=== PATIENT | female | born 1935 | race Caucasian/White ===

== ENCOUNTER 2021-12-18 23:24 | Inpatient (IN) | payer MEDICARE, MEDICAID ==
[~2021-12-18] VITALS: Ht 152.4 cm; Wt 66.2 kg
[~2021-12-18 23:24] MED LIST: ATENOLOL50 MG PO; NORVASC5 MG PO; PROTONIX20 MG PO; REMERON15 MG PO; RISPERDAL2 MG PO; WELLBUTRIN SR150 MG PO
[2021-12-18 23:29] VITALS: BP 170/64
[2021-12-19] VITALS (8 sets, daily range): BP systolic 112–188; BP diastolic 51–91
[2021-12-19 00:36] LABS: BASO % 0.1 % (0.0-1.0); EOS # 0.1 10*3/uL (0.0-0.4); EOS % 1.5 % (1.0-4.0); HEMATOCRIT 27.2 % (37.0-47.0); LYMPH # 1.3 10*3/uL (1.3-4.4); LYMPH % 14.8 % (27.0-41.0); MEAN CELL VOLUME 78.2 fl (81.0-99.0); MEAN CORPUSCULAR HGB CONC 34.6 g/dl (33.0-37.0); MEAN PLATELET VOLUME 7.8 fl (9.6-12.3); MONO # 0.9 10*3/uL (0.1-1.0); MONO % 9.8 % (3.0-9.0); NEUT # 6.5 10*3/uL (2.3-7.9); NEUT % 73.5 % (47.0-73.0); PLATELET COUNT AUTOMATED 249 10*3/uL (130-400); RED BLOOD COUNT 3.48 10*6/uL (4.10-5.10); RED CELL DISTRI WIDTH 15.4 % (0-14.5); WHITE BLOOD COUNT 8.9 10*3/uL (4.8-10.8)
[2021-12-19 00:55] LABS: ALBUMIN 2.5 gm/dl (3.1-4.5); ALKALINE PHOSPHATASE 96 U/L (45-117); BUN 12 mg/dl (7-24); CHLORIDE 87 mmol/L (98-107); CREATININE 1.04 mg/dL (0.55-1.02); POTASSIUM 4.3 mmol/L (3.5-5.1); SGOT/AST 26 IU/L (3-35); SGPT/ALT 24 U/L (12-78); TOTAL PROTEIN 6.7 gm/dL (6.4-8.2)
[2021-12-19 01:00] LABS: SODIUM 119 mmol/L (136-145)
[2021-12-19 07:17] LABS: BASO % 0.2 % (0.0-1.0); EOS # 0.1 10*3/uL (0.0-0.4); EOS % 1.4 % (1.0-4.0); LYMPH # 1.3 10*3/uL (1.3-4.4); MEAN CELL VOLUME 78.7 fl (81.0-99.0); MEAN CORPUSCULAR HGB 26.5 pg (27.0-31.0); MEAN CORPUSCULAR HGB CONC 33.7 g/dl (33.0-37.0); MONO # 0.8 10*3/uL (0.1-1.0); MONO % 11.8 % (3.0-9.0); NEUT # 4.3 10*3/uL (2.3-7.9); NEUT % 66.1 % (47.0-73.0); PLATELET COUNT AUTOMATED 248 10*3/uL (130-400); RED BLOOD COUNT 3.43 10*6/uL (4.10-5.10); RED CELL DISTRI WIDTH 15.3 % (0-14.5); WHITE BLOOD COUNT 6.6 10*3/uL (4.8-10.8)
[2021-12-19 07:27] LABS: ACT PARTIAL THROMBO TIME 35.6 SECONDS (20.0-32.1); INTERNATIONAL NORM RATIO 1.1 (2.0-3.5)
[2021-12-19 07:38] LABS: ALBUMIN 2.4 gm/dl (3.1-4.5); BUN 11 mg/dl (7-24); CHLORIDE 87 mmol/L (98-107); CREATININE 0.96 mg/dL (0.55-1.02); POTASSIUM 4.4 mmol/L (3.5-5.1); SGPT/ALT 24 U/L (12-78); SODIUM 120 mmol/L (136-145); TOTAL PROTEIN 6.6 gm/dL (6.4-8.2); TRIGLYCERIDES 71 mg/dl (<150)
[2021-12-19 07:43] LABS: ALKALINE PHOSPHATASE 96 U/L (45-117); CHOLESTEROL 86 mg/dL (<200); LDL CHOLESTEROL 25 mg/dL (9-159); SGOT/AST 26 IU/L (3-35)
[2021-12-19 17:03] LABS: CREATININE 1.07 mg/dL (0.55-1.02); POTASSIUM 4.2 mmol/L (3.5-5.1)
[2021-12-19] MEDS ORDERED: LIPITOR20 MG PO (22:04)
[2021-12-20] VITALS: BP 153/71
[2021-12-20 01:32] LABS: BILIRUBIN Negative (Negative); BLOOD Negative (Negative); CLARITY Clear (Clear); COLOR Yellow (Yellow); GLUCOSE Negative (Negative); KETONE Negative (Negative); LEUKO ESTERASE Negative (Negative); NITRITE Negative (Negative); UROBILINOGEN 0.2 E.U./dl (0.0-1.0)
[2021-12-20 01:50] LABS: URINE CREATININE RANDOM 43.9 mg/dL
[2021-12-20 07:27] LABS: BASO % 0.1 % (0.0-1.0); EOS % 0.1 % (1.0-4.0); HEMATOCRIT 29.1 % (37.0-47.0); LYMPH # 0.5 10*3/uL (1.3-4.4); LYMPH % 3.5 % (27.0-41.0); MEAN CELL VOLUME 79.5 fl (81.0-99.0); MEAN CORPUSCULAR HGB 26.5 pg (27.0-31.0); MEAN CORPUSCULAR HGB CONC 33.3 g/dl (33.0-37.0); MEAN PLATELET VOLUME 7.9 fl (9.6-12.3); MONO # 0.9 10*3/uL (0.1-1.0); MONO % 6.1 % (3.0-9.0); NEUT # 13.2 10*3/uL (2.3-7.9); NEUT % 89.7 % (47.0-73.0); PLATELET COUNT AUTOMATED 258 10*3/uL (130-400); RED BLOOD COUNT 3.66 10*6/uL (4.10-5.10); RED CELL DISTRI WIDTH 15.3 % (0-14.5); WHITE BLOOD COUNT 14.7 10*3/uL (4.8-10.8)
[2021-12-20 07:46] LABS: BUN 8 mg/dl (7-24); CHLORIDE 87 mmol/L (98-107); CREATININE 0.93 mg/dL (0.55-1.02); POTASSIUM 4.2 mmol/L (3.5-5.1); SODIUM 120 mmol/L (136-145)
[2021-12-20 08:00] VITALS: BP 146/69
[2021-12-20 12:00] VITALS: BP 122/76
[2021-12-20 15:04] VITALS: BP 131/96
[2021-12-20 21:16] VITALS: BP 130/45
[2021-12-21] VITALS: BP 155/62
[2021-12-21 07:01] LABS: HEMATOCRIT 28.2 % (37.0-47.0); MEAN CELL VOLUME 78.1 fl (81.0-99.0); MEAN CORPUSCULAR HGB 26.6 pg (27.0-31.0); MEAN PLATELET VOLUME 8.3 fl (9.6-12.3); PLATELET COUNT AUTOMATED 277 10*3/uL (130-400); RED BLOOD COUNT 3.61 10*6/uL (4.10-5.10); RED CELL DISTRI WIDTH 15.4 % (0-14.5); WHITE BLOOD COUNT 16.8 10*3/uL (4.8-10.8)
[2021-12-21 07:13] LABS: CREATININE 1.06 mg/dL (0.55-1.02); POTASSIUM 3.6 mmol/L (3.5-5.1)
[2021-12-21 07:19] LABS: THYROID STIM HORMONE (HS) 1.25 uIU/ml (0.358-4.75)
[2021-12-21 08:00] VITALS: BP 129/100
[2021-12-21 08:12] LABS: ACANTHOCYTES FEW; PLATELET SUFFICIENCY NORMAL (NORMAL); POLYCHROMASIA SLIGHT; TOTAL CELLS COUNTED 100 #CELLS
[2021-12-21 12:00] VITALS: BP 139/89
[2021-12-21 16:00] VITALS: BP 128/61
[2021-12-21 20:00] VITALS: BP 123/85
[2021-12-22] VITALS: BP 104/60
[2021-12-22 06:23] LABS: BASO % 0.1 % (0.0-1.0); EOS # 0.1 10*3/uL (0.0-0.4); EOS % 0.8 % (1.0-4.0); LYMPH # 0.6 10*3/uL (1.3-4.4); LYMPH % 3.8 % (27.0-41.0); MEAN CELL VOLUME 78.7 fl (81.0-99.0); MEAN CORPUSCULAR HGB 26.5 pg (27.0-31.0); MEAN CORPUSCULAR HGB CONC 33.7 g/dl (33.0-37.0); MEAN PLATELET VOLUME 8.1 fl (9.6-12.3); MONO # 0.9 10*3/uL (0.1-1.0); MONO % 5.9 % (3.0-9.0); NEUT # 12.8 10*3/uL (2.3-7.9); PLATELET COUNT AUTOMATED 255 10*3/uL (130-400); RED BLOOD COUNT 3.43 10*6/uL (4.10-5.10); RED CELL DISTRI WIDTH 15.5 % (0-14.5); WHITE BLOOD COUNT 14.4 10*3/uL (4.8-10.8)
[2021-12-22 06:31] LABS: BUN 12 mg/dl (7-24); CHLORIDE 92 mmol/L (98-107); SODIUM 123 mmol/L (136-145)
[2021-12-22 06:32] LABS: POTASSIUM 3.9 mmol/L (3.5-5.1)
[2021-12-22 08:00] VITALS: BP 125/50
[2021-12-22 13:00] VITALS: BP 117/58
[2021-12-22 16:00] VITALS: BP 139/90
[2021-12-22 20:00] VITALS: BP 143/88
[2021-12-23 07:01] LABS: BASO % 0.1 % (0.0-1.0); EOS # 0.1 10*3/uL (0.0-0.4); HEMATOCRIT 26.2 % (37.0-47.0); LYMPH # 0.8 10*3/uL (1.3-4.4); LYMPH % 6.2 % (27.0-41.0); MEAN CELL VOLUME 77.1 fl (81.0-99.0); MEAN CORPUSCULAR HGB 25.9 pg (27.0-31.0); MEAN CORPUSCULAR HGB CONC 33.6 g/dl (33.0-37.0); MEAN PLATELET VOLUME 8.4 fl (9.6-12.3); MONO # 1.1 10*3/uL (0.1-1.0); MONO % 8.4 % (3.0-9.0); NEUT # 11.4 10*3/uL (2.3-7.9); NEUT % 83.7 % (47.0-73.0); PLATELET COUNT AUTOMATED 311 10*3/uL (130-400); RED CELL DISTRI WIDTH 15.4 % (0-14.5); WHITE BLOOD COUNT 13.6 10*3/uL (4.8-10.8)
[2021-12-23 07:10] LABS: BUN 9 mg/dl (7-24); CHLORIDE 93 mmol/L (98-107); CREATININE 0.73 mg/dL (0.55-1.02); POTASSIUM 3.5 mmol/L (3.5-5.1); SODIUM 123 mmol/L (136-145)
[2021-12-23 08:00] VITALS: BP 119/50
[2021-12-23 12:00] VITALS: BP 124/64
[2021-12-23 16:00] VITALS: BP 120/55
[2021-12-23 20:00] VITALS: BP 138/59
[2021-12-24] VITALS: BP 130/61
[2021-12-24 06:12] LABS: BASO % 0.2 % (0.0-1.0); EOS # 0.1 10*3/uL (0.0-0.4); EOS % 0.8 % (1.0-4.0); HEMATOCRIT 27.5 % (37.0-47.0); LYMPH # 0.7 10*3/uL (1.3-4.4); LYMPH % 5.5 % (27.0-41.0); MEAN CORPUSCULAR HGB 26.4 pg (27.0-31.0); MEAN CORPUSCULAR HGB CONC 33.5 g/dl (33.0-37.0); MEAN PLATELET VOLUME 8.1 fl (9.6-12.3); MONO # 1.4 10*3/uL (0.1-1.0); MONO % 10.7 % (3.0-9.0); NEUT # 10.5 10*3/uL (2.3-7.9); PLATELET COUNT AUTOMATED 303 10*3/uL (130-400); RED BLOOD COUNT 3.48 10*6/uL (4.10-5.10); RED CELL DISTRI WIDTH 15.6 % (0-14.5); WHITE BLOOD COUNT 12.8 10*3/uL (4.8-10.8)
[2021-12-24 06:23] LABS: BUN 7 mg/dl (7-24); CHLORIDE 94 mmol/L (98-107); CREATININE 0.71 mg/dL (0.55-1.02); POTASSIUM 3.9 mmol/L (3.5-5.1); SODIUM 126 mmol/L (136-145)
[2021-12-24 08:52] VITALS: BP 120/61
[2021-12-24 11:37] VITALS: BP 120/61
[2021-12-24 16:00] VITALS: BP 138/50
[2021-12-24 20:00] VITALS: BP 143/50
[2021-12-25 06:10] LABS: BASO % 0.2 % (0.0-1.0); EOS # 0.1 10*3/uL (0.0-0.4); EOS % 1.1 % (1.0-4.0); HEMATOCRIT 26.2 % (37.0-47.0); LYMPH % 8.5 % (27.0-41.0); MEAN CELL VOLUME 77.7 fl (81.0-99.0); MEAN CORPUSCULAR HGB 26.7 pg (27.0-31.0); MEAN CORPUSCULAR HGB CONC 34.4 g/dl (33.0-37.0); MONO # 1.5 10*3/uL (0.1-1.0); MONO % 12.4 % (3.0-9.0); NEUT # 9.3 10*3/uL (2.3-7.9); PLATELET COUNT AUTOMATED 306 10*3/uL (130-400); RED BLOOD COUNT 3.37 10*6/uL (4.10-5.10); RED CELL DISTRI WIDTH 15.8 % (0-14.5)
[2021-12-25 06:26] LABS: BUN 6 mg/dl (7-24); CHLORIDE 93 mmol/L (98-107); CREATININE 0.65 mg/dL (0.55-1.02); POTASSIUM 3.5 mmol/L (3.5-5.1); SODIUM 125 mmol/L (136-145)
[2021-12-25 08:00] VITALS: BP 152/88
[2021-12-25 12:00] VITALS: BP 122/50
[2021-12-25 16:00] VITALS: BP 131/110
[2021-12-25 20:00] VITALS: BP 133/64
[2021-12-26] VITALS (9 sets, daily range): BP systolic 122–167; BP diastolic 42–81
[2021-12-26] MEDS ORDERED: PANTOPRAZOLE SO40 MG PO (03:51)
[2021-12-26 07:29] LABS: BUN 7 mg/dl (7-24); CHLORIDE 97 mmol/L (98-107); POTASSIUM 3.3 mmol/L (3.5-5.1); SODIUM 130 mmol/L (136-145)
[2021-12-26 07:30] LABS: CREATININE 0.66 mg/dL (0.55-1.02)
[2021-12-27] VITALS: BP 126/49
[2021-12-27 07:04] LABS: BASO % 0.3 % (0.0-1.0); EOS # 0.2 10*3/uL (0.0-0.4); EOS % 2.1 % (1.0-4.0); HEMATOCRIT 29.4 % (37.0-47.0); LYMPH # 1.6 10*3/uL (1.3-4.4); LYMPH % 17.2 % (27.0-41.0); MEAN CELL VOLUME 79.5 fl (81.0-99.0); MEAN CORPUSCULAR HGB 26.2 pg (27.0-31.0); MEAN PLATELET VOLUME 8.2 fl (9.6-12.3); MONO # 0.9 10*3/uL (0.1-1.0); MONO % 9.7 % (3.0-9.0); NEUT # 6.3 10*3/uL (2.3-7.9); NEUT % 69.3 % (47.0-73.0); PLATELET COUNT AUTOMATED 389 10*3/uL (130-400); RED CELL DISTRI WIDTH 16.3 % (0-14.5); WHITE BLOOD COUNT 9.1 10*3/uL (4.8-10.8)
[2021-12-27 07:22] LABS: BUN 5 mg/dl (7-24); CHLORIDE 97 mmol/L (98-107); CREATININE 0.64 mg/dL (0.55-1.02); SODIUM 129 mmol/L (136-145)
[2021-12-27 08:00] VITALS: BP 140/50
[2021-12-27] MEDS ORDERED: SODIUM CHLORIDE1 GM PO (11:36)
[2021-12-27] MEDS ORDERED: MUCUS RELIEF600 MG PO (11:36)
[2021-12-27] MEDS ORDERED: Carafate1 GM PO (11:36)
[2021-12-27] MEDS ORDERED: LEVOFLOXACIN750 M2 PO (11:36)
[2021-12-27 12:00] VITALS: BP 140/62
== END 2021-12-27 15:19 | DRG 871 ==
LOC: ED 23:24 → EDHOLD 12-19 06:17 → 4E 12-19 06:17 → EDHOLD 12-19 16:51 → 4E 12-19 16:51
PROVIDERS: Emergency Medicine; Hospitalist; Internal Medicine; Internal Medicine Nephrology; ADMIT Internal Medicine; ATTEND Internal Medicine
PROC: BD1BYZZ Fluoroscopy of Mouth/Oropharynx using Other Contrast (ICD-10-PCS; 2021-12-25)
PROC: 0D718ZZ Dilation of Upper Esophagus, Via Natural or Artificial Opening Endoscopic (ICD-10-PCS; principal; 2021-12-26)
DX: A41.9 Sepsis, unspecified organism (principal); N17.0 Acute kidney failure with tubular necrosis; J18.9 Pneumonia, unspecified organism; E43 Unspecified severe protein-calorie malnutrition; J96.00 Acute respiratory failure, unspecified whether with hypoxia or hypercapnia; E87.1 Hypo-osmolality and hyponatremia; Z51.5 Encounter for palliative care; R13.10 Dysphagia, unspecified; E87.6 Hypokalemia; Z66 Do not resuscitate; R73.9 Hyperglycemia, unspecified; J06.9 Acute upper respiratory infection, unspecified; D50.9 Iron deficiency anemia, unspecified; K21.9 Gastro-esophageal reflux disease without esophagitis; E87.8 Other disorders of electrolyte and fluid balance, not elsewhere classified; E78.2 Mixed hyperlipidemia; I10 Essential (primary) hypertension; Z88.2 Allergy status to sulfonamides; Z90.710 Acquired absence of both cervix and uterus; Z88.0 Allergy status to penicillin; Z90.49 Acquired absence of other specified parts of digestive tract; Z88.1 Allergy status to other antibiotic agents; Z88.8 Allergy status to other drugs, medicaments and biological substances; Z20.822 Contact with and (suspected) exposure to COVID-19

== ENCOUNTER 2022-01-18 08:20 | Emergency (ER) | payer MEDICARE, MEDICAID ==
[~2022-01-18] VITALS: Ht 165.1 cm; Wt 68.9 kg
[~2022-01-18 08:20] MED LIST changes: +Carafate1 GM PO; +LEVOFLOXACIN750 M2 PO; +LIPITOR20 MG PO; +MUCUS RELIEF600 MG PO; +PANTOPRAZOLE SO40 MG PO; +SODIUM CHLORIDE1 GM PO
[2022-01-18 08:54] LABS: BASO % 0.5 % (0.0-1.0); EOS # 0.4 10*3/uL (0.0-0.4); EOS % 4.9 % (1.0-4.0); HEMATOCRIT 35.5 % (37.0-47.0); LYMPH % 26.8 % (27.0-41.0); MEAN CELL VOLUME 83.3 fl (81.0-99.0); MEAN CORPUSCULAR HGB 26.5 pg (27.0-31.0); MEAN CORPUSCULAR HGB CONC 31.8 g/dl (33.0-37.0); MEAN PLATELET VOLUME 8.3 fl (9.6-12.3); MONO # 0.5 10*3/uL (0.1-1.0); MONO % 6.8 % (3.0-9.0); NEUT # 4.6 10*3/uL (2.3-7.9); NEUT % 60.6 % (47.0-73.0); PLATELET COUNT AUTOMATED 279 10*3/uL (130-400); RED BLOOD COUNT 4.26 10*6/uL (4.10-5.10); WHITE BLOOD COUNT 7.5 10*3/uL (4.8-10.8)
[2022-01-18 08:59] VITALS: BP 175/80
[2022-01-18 09:13] LABS: ALBUMIN 2.8 gm/dl (3.1-4.5); ALKALINE PHOSPHATASE 86 U/L (45-117); BUN 7 mg/dl (7-24); CHLORIDE 109 mmol/L (98-107); CREATININE 0.77 mg/dL (0.55-1.02); POTASSIUM 4.3 mmol/L (3.5-5.1); SGOT/AST 19 IU/L (3-35); SGPT/ALT 17 U/L (12-78); SODIUM 140 mmol/L (136-145); TOTAL PROTEIN 7.3 gm/dL (6.4-8.2)
[2022-01-18 09:48] LABS: BILIRUBIN Negative (Negative); BLOOD Trace-Lysed (Negative); CLARITY Clear (Clear); COLOR Yellow (Yellow); GLUCOSE Negative (Negative); KETONE Negative (Negative); LEUKO ESTERASE Negative (Negative); NITRITE Negative (Negative); PH 7.5 (4.5-8.0); UROBILINOGEN 0.2 E.U./dl (0.0-1.0)
[2022-01-18 09:54] LABS: BACTERIA 1+
[2022-01-18 09:55] LABS: EPITHELIAL CELLS 0-2
== END 2022-01-18 10:16 | disposition home or self-care (01) ==
LOC: ED 08:20
PROVIDERS: Emergency Medicine
DX: R41.0 Disorientation, unspecified (principal); Z88.0 Allergy status to penicillin; Z88.1 Allergy status to other antibiotic agents; Z88.2 Allergy status to sulfonamides; Z79.899 Other long term (current) drug therapy; Z90.710 Acquired absence of both cervix and uterus; Z90.49 Acquired absence of other specified parts of digestive tract

== ENCOUNTER 2023-03-21 16:04 | Emergency (ER) | payer MEDICARE, MEDICAID ==
[2023-03-21 16:10] VITALS: BP 153/70
[2023-03-21 16:53] LABS: BASO % 0.3 % (0.0-1.0); EOS # 0.2 10*3/uL (0.0-0.4); EOS % 2.3 % (1.0-4.0); LYMPH # 2.5 10*3/uL (1.3-4.4); LYMPH % 31.9 % (27.0-41.0); MEAN CELL VOLUME 82.2 fl (81.0-99.0); MEAN CORPUSCULAR HGB 27.1 pg (27.0-31.0); MEAN CORPUSCULAR HGB CONC 32.9 g/dl (33.0-37.0); MEAN PLATELET VOLUME 8.4 fl (9.6-12.3); MONO # 0.6 10*3/uL (0.1-1.0); MONO % 7.4 % (3.0-9.0); NEUT # 4.6 10*3/uL (2.3-7.9); NEUT % 57.7 % (47.0-73.0); PLATELET COUNT AUTOMATED 339 10*3/uL (130-400); RED BLOOD COUNT 3.77 10*6/uL (4.10-5.10); RED CELL DISTRI WIDTH 15.7 % (0-14.5)
[2023-03-21 17:08] LABS: ACT PARTIAL THROMBO TIME 33.3 SECONDS (20.0-32.1)
[2023-03-21 17:09] LABS: ALKALINE PHOSPHATASE 90 U/L (46-116); BUN 12 mg/dl (9-23); CHLORIDE 99 mmol/L (98-107); LIPASE 44 U/L (12-53); POTASSIUM 4.8 mmol/L (3.4-5.1); SGPT/ALT 14 U/L (10-49); TOTAL PROTEIN 6.8 gm/dL (6.0-8.0)
== END 2023-03-21 18:49 ==
LOC: ED 16:04
PROVIDERS: Emergency Medicine
DX: J20.9 Acute bronchitis, unspecified (principal)

== ENCOUNTER 2024-06-24 07:06 | Inpatient (IN) | payer MEDICARE, MEDICAID ==
[~2024-06-24] VITALS: Ht 152.4 cm; Wt 64.2 kg
[~2024-06-24 07:06] MED LIST changes: +ATENOLOL25 MG PO; -ATENOLOL50 MG PO
[2024-06-24 07:08] VITALS: BP 202/93
[2024-06-24 07:51] LABS: BASO % 0.3 % (0.0-1.0); EOS # 0.2 10*3/uL (0.0-0.4); EOS % 1.8 % (1.0-4.0); HEMATOCRIT 37.7 % (37.0-47.0); LYMPH # 2.4 10*3/uL (1.3-4.4); LYMPH % 25.7 % (27.0-41.0); MEAN CELL VOLUME 95.2 fl (81.0-99.0); MEAN CORPUSCULAR HGB 30.8 pg (27.0-31.0); MEAN CORPUSCULAR HGB CONC 32.4 g/dl (33.0-37.0); MEAN PLATELET VOLUME 8.9 fl (9.6-12.3); MONO # 0.8 10*3/uL (0.1-1.0); MONO % 8.8 % (3.0-9.0); NEUT # 5.8 10*3/uL (2.3-7.9); NEUT % 63.2 % (47.0-73.0); PLATELET COUNT AUTOMATED 310 10*3/uL (130-400); RED BLOOD COUNT 3.96 10*6/uL (4.10-5.10); RED CELL DISTRI WIDTH 13.8 % (0-14.5); WHITE BLOOD COUNT 9.1 10*3/uL (4.8-10.8)
[2024-06-24 08:13] LABS: ALKALINE PHOSPHATASE 90 U/L (46-116); BUN 7 mg/dl (9-23); CHLORIDE 101 mmol/L (98-107); POTASSIUM 3.8 mmol/L (3.4-5.1); SGPT/ALT 11 U/L (5-49)
[2024-06-24] MEDS ORDERED: Vancomycin Hydrochloride 250 ML IV ONE (08:30)
[2024-06-24] MEDS ORDERED: Cefepime Hydrochloride 1 GM in SODIUM CHLORIDE 0.9% 50 ML IV ONE (08:45)
[2024-06-24] MEDS ORDERED: BISACODYL 5 MG TAB PO PRN (12:40)
[2024-06-24] MEDS ORDERED: Ondansetron Hydrochloride 4 MG/2 ML VIAL IV PRN (12:40)
[2024-06-24] MEDS ORDERED: ACETAMINOPHEN 325 MG TAB PO PRN (12:40)
[2024-06-24] MEDS ORDERED: ATENOLOL 50 MG TAB PO ONE (12:45)
[2024-06-24] MEDS ORDERED: amLODIPine besylate 5 MG TAB PO ONE (12:45)
[2024-06-24] MEDS ORDERED: Vancomycin Hydrochloride 1,000 MG in SODIUM CHLORIDE 0.9% 250 ML IV SCH (12:50)
[2024-06-24] MEDS ORDERED: ATENOLOL50 M1 PO (18:21)
[2024-06-24] MEDS ORDERED: CALCIUM500 M1 PO (18:21)
[2024-06-24] MEDS ORDERED: CHLORHEXIDINE473 M1 PO (18:22)
[2024-06-24] MEDS ORDERED: LOPERAMIDE PO (18:23)
[2024-06-24] MEDS ORDERED: LOSARTAN POTAS100 M1 PO (18:24)
[2024-06-24] MEDS ORDERED: MAGOX 400400 MG PO (18:25)
[2024-06-24] MEDS ORDERED: MELATONIN5 M1 SL (18:26)
[2024-06-24] MEDS ORDERED: Zaroxolyn,Diul2.5 MG PO (18:28)
[2024-06-24] MEDS ORDERED: DOXYCYCLINE HY100 M3 PO (18:30)
[2024-06-24] MEDS ORDERED: CLARITIN10 MG PO (18:31)
[2024-06-24] MEDS ORDERED: FUROSEMIDE40 MG PO (18:31)
[2024-06-24] MEDS ORDERED: DOCUSATE SOD100 MG PO (18:31)
[2024-06-24] MEDS ORDERED: DULCOLAX10 M1 R (18:32)
[2024-06-24] MEDS ORDERED: GAVISCON LIQUI355 ML PO (18:33)
[2024-06-24] MEDS ORDERED: Ipratropium Brom3 ML INH (18:34)
[2024-06-24] MEDS ORDERED: IRON325 M1 PO (18:34)
[2024-06-24] MEDS ORDERED: MILK OF MA400 MG/5 M PO (18:35)
[2024-06-24] MEDS ORDERED: MIRALAX17 GM PO (18:36)
[2024-06-24] MEDS ORDERED: MYLANTA MAXIMUM10 ML PO (18:37)
[2024-06-24 20:00] VITALS: BP 187/77
[2024-06-24] MEDS ORDERED: ATENOLOL 50 MG TAB PO PRN (21:50)
[2024-06-24] MEDS ORDERED: Losartan Potassium 100 MG TABLET PO SCH (21:50)
[2024-06-24] MEDS ORDERED: ATORVASTATIN CALCIUM 20 MG TAB PO SCH (22:00)
[2024-06-25 00:27] VITALS: BP 178/89
[2024-06-25 01:36] LABS: BILIRUBIN Negative (Negative); BLOOD 2+ (Negative); CLARITY Turbid (Clear); COLOR Yellow (Yellow); GLUCOSE Negative (Negative); KETONE Negative (Negative); LEUKO ESTERASE 3+ (Negative); NITRITE Negative (Negative); UROBILINOGEN 0.2 E.U./dl (0.0-1.0)
[2024-06-25 01:43] LABS: BACTERIA TRACE; RBC 21-30 rbc/hpf (0-2); WBC TNTC wbc/hpf (0-5)
[2024-06-25 05:56] LABS: ALKALINE PHOSPHATASE 92 U/L (46-116); BUN 7 mg/dl (9-23); CHLORIDE 101 mmol/L (98-107); CHOLESTEROL 115 mg/dL (<200); LDL CHOLESTEROL 56 mg/dL (9-159); POTASSIUM 3.6 mmol/L (3.4-5.1); SGPT/ALT 12 U/L (5-49); TOTAL PROTEIN 6.9 gm/dL (6.0-8.0); TRIGLYCERIDES 121 mg/dl (<150)
[2024-06-25 06:10] LABS: BASO % 0.3 % (0.0-1.0); EOS # 0.1 10*3/uL (0.0-0.4); EOS % 1.1 % (1.0-4.0); HEMATOCRIT 38.5 % (37.0-47.0); LYMPH # 1.6 10*3/uL (1.3-4.4); LYMPH % 16.4 % (27.0-41.0); MEAN CELL VOLUME 94.6 fl (81.0-99.0); MEAN CORPUSCULAR HGB 30.5 pg (27.0-31.0); MEAN CORPUSCULAR HGB CONC 32.2 g/dl (33.0-37.0); MEAN PLATELET VOLUME 9.1 fl (9.6-12.3); MONO # 0.8 10*3/uL (0.1-1.0); MONO % 8.5 % (3.0-9.0); NEUT % 73.4 % (47.0-73.0); PLATELET COUNT AUTOMATED 323 10*3/uL (130-400); RED BLOOD COUNT 4.07 10*6/uL (4.10-5.10); RED CELL DISTRI WIDTH 13.9 % (0-14.5); WHITE BLOOD COUNT 9.6 10*3/uL (4.8-10.8)
[2024-06-25 06:47] VITALS: BP 184/89
[2024-06-25 07:25] LABS: VITAMIN D, 25-HYDROXY 42.2 ng/mL (30-100)
[2024-06-25] MEDS ORDERED: Ceftriaxone Sodium 1 GM in SYRINGE INFUSION 10 ML IV SCH (08:00)
[2024-06-25 09:47] VITALS: BP 200/80
[2024-06-25] MEDS ORDERED: METOLAZONE 2.5 MG TAB PO SCH (10:00)
[2024-06-25] MEDS ORDERED: VANCOMYCIN/WATER FOR INJ (PEG) 250 ML IV SCH (10:00)
[2024-06-25] MEDS ORDERED: FUROSEMIDE 40 MG TAB PO SCH (10:00)
[2024-06-25] MEDS ORDERED: ATENOLOL 25 MG TAB PO SCH (10:00)
[2024-06-25] MEDS ORDERED: Enoxaparin Sodium 40 MG/0.4 ML SYR SC SCH (10:00)
[2024-06-25] MEDS ORDERED: Losartan Potassium 100 MG TABLET PO SCH (11:54)
[2024-06-25 12:27] VITALS: BP 182/83
[2024-06-25 13:45] VITALS: BP 161/91
[2024-06-25] MEDS ORDERED: CHAIR CUSHION DEVICE ONE (14:12)
[2024-06-25] MEDS ORDERED: HEEL PROTECTOR DEVICE ONE (14:12)
[2024-06-25 20:00] VITALS: BP 152/88
[2024-06-25] MEDS ORDERED: NYSTATIN 15 GM BOT T SCH (22:00)
[2024-06-26] VITALS: BP 150/65
[2024-06-26 08:00] VITALS: BP 137/53
[2024-06-26 08:48] LABS: BASO % 0.4 % (0.0-1.0); EOS # 0.2 10*3/uL (0.0-0.4); HEMATOCRIT 39.9 % (37.0-47.0); LYMPH # 2.1 10*3/uL (1.3-4.4); LYMPH % 20.1 % (27.0-41.0); MEAN CELL VOLUME 91.7 fl (81.0-99.0); MEAN CORPUSCULAR HGB 30.8 pg (27.0-31.0); MEAN CORPUSCULAR HGB CONC 33.6 g/dl (33.0-37.0); MEAN PLATELET VOLUME 8.7 fl (9.6-12.3); MONO # 0.9 10*3/uL (0.1-1.0); MONO % 8.5 % (3.0-9.0); NEUT # 7.3 10*3/uL (2.3-7.9); NEUT % 68.6 % (47.0-73.0); PLATELET COUNT AUTOMATED 327 10*3/uL (130-400); RED BLOOD COUNT 4.35 10*6/uL (4.10-5.10); RED CELL DISTRI WIDTH 14.1 % (0-14.5); WHITE BLOOD COUNT 10.6 10*3/uL (4.8-10.8)
[2024-06-26 09:11] LABS: POTASSIUM 3.7 mmol/L (3.4-5.1)
[2024-06-26] MEDS ORDERED: Sertraline Hydrochloride 50 MG TAB PO SCH (10:55)
[2024-06-26 12:00] VITALS: BP 130/70
[2024-06-26 16:00] VITALS: BP 120/60
[2024-06-26 20:00] VITALS: BP 109/42
[2024-06-26] MEDS ORDERED: CALCIUM (TUMS) 500MG PO ONE (23:35)
[2024-06-27] VITALS: BP 116/47
[2024-06-27 08:00] VITALS: BP 120/60
[2024-06-27] MEDS ORDERED: IRON325 M1 PO ×2 (08:37→08:59)
[2024-06-27] MEDS ORDERED: SERTRALINE HYDR50 MG PO ×2 (08:37→08:59)
[2024-06-27] MEDS ORDERED: FOSFOMYCIN TROME3 GM PO ×2 (08:57→08:59)
[2024-06-27] MEDS ORDERED: NAMENDA-5 PO (09:16)
[2024-06-27] MEDS ORDERED: RISPERDAL1 M1 PO (09:16)
[2024-06-27] MEDS ORDERED: Fosfomycin Tromethamine 3 GM PDS PO SCH (10:00)
[2024-06-27] MEDS ORDERED: Rivastigmine Tartrate 4.6 MG/24 HR PATCH T SCH (10:00)
== END 2024-06-27 11:00 | DRG 603 ==
LOC: ED 07:06 → 4E 11:10 → EDHOLD 11:10 → 4E 06-25 12:51
PROVIDERS: Internal Medicine; Registered Nurse; ADMIT Internal Medicine; ATTEND Internal Medicine
DX: L03.116 Cellulitis of left lower limb (principal); E87.1 Hypo-osmolality and hyponatremia; E44.0 Moderate protein-calorie malnutrition; N30.00 Acute cystitis without hematuria; L03.115 Cellulitis of right lower limb; I10 Essential (primary) hypertension; R73.9 Hyperglycemia, unspecified; K21.9 Gastro-esophageal reflux disease without esophagitis; F03.90 Unspecified dementia, unspecified severity, without behavioral disturbance, psychotic disturbance, mood disturbance, and anxiety; Z66 Do not resuscitate; F41.9 Anxiety disorder, unspecified; B96.20 Unspecified Escherichia coli [E. coli] as the cause of diseases classified elsewhere; E78.5 Hyperlipidemia, unspecified; Z51.5 Encounter for palliative care; Z88.1 Allergy status to other antibiotic agents; Z88.0 Allergy status to penicillin; Z88.2 Allergy status to sulfonamides; Z88.8 Allergy status to other drugs, medicaments and biological substances; Z90.49 Acquired absence of other specified parts of digestive tract; Z90.710 Acquired absence of both cervix and uterus; Z98.41 Cataract extraction status, right eye; Z68.27 Body mass index [BMI] 27.0-27.9, adult

== ENCOUNTER 2024-07-30 16:58 | Inpatient (IN) | payer MEDICARE, MEDICAID ==
[~2024-07-30] VITALS: Ht 154.9 cm; Wt 63.6 kg
[~2024-07-30 16:58] MED LIST changes: +ATENOLOL50 M1 PO; +CALCIUM500 M1 PO; +CHLORHEXIDINE473 M1 PO; +CIPRO500 MG PO; +CLARITIN10 MG PO; +DOCUSATE SOD100 MG PO; +DOXYCYCLINE HY100 M3 PO; +DULCOLAX10 M1 R; +FOSFOMYCIN TROME3 GM PO; +FUROSEMIDE40 MG PO; +GAVISCON LIQUI355 ML PO; +IRON325 M1 PO; +Ipratropium Brom3 ML INH; +LOPERAMIDE PO; +LOSARTAN POTAS100 M1 PO; +MAGOX 400400 MG PO; +MELATONIN5 M1 SL; +MILK OF MA400 MG/5 M PO; +MIRALAX17 GM PO; +MYLANTA MAXIMUM10 ML PO; +NAMENDA-5 PO; +RISPERDAL1 M1 PO; +SERTRALINE HYDR50 MG PO; +Zaroxolyn,Diul2.5 MG PO
[2024-07-30] MEDS ORDERED: Fosfomycin Tromethamine 3 GM PDS PO ONE (18:35)
[2024-07-30 20:00] VITALS: BP 147/93
[2024-07-30] MEDS ORDERED: [UNRECOGNIZED DRUG - OTHER] R (21:56)
[2024-07-30] MEDS ORDERED: MINERAL OIL R (21:58)
[2024-07-30] MEDS ORDERED: NAMENDA-5 PO ×2 (22:07)
[2024-07-30] MEDS ORDERED: PROTONIX40 M2 PO (22:08)
[2024-07-30] MEDS ORDERED: K-TAB20 MEQ PO (22:09)
[2024-07-30] MEDS ORDERED: PREDNISONE2.5 MG PO (22:12)
[2024-07-30] MEDS ORDERED: REMERON15 M2 PO (22:13)
[2024-07-30] MEDS ORDERED: EXEL13.31 T (22:14)
[2024-07-30] MEDS ORDERED: ZOLOFT25 MG PO (22:17)
[2024-07-30] MEDS ORDERED: SODIUM CHLORI1000 M5 PO (22:20)
[2024-07-30] MEDS ORDERED: TYLENOL325 M1 PO (22:22)
[2024-07-30] MEDS ORDERED: XANAX0.5 MG PO (22:23)
[2024-07-30] MEDS ORDERED: IRON325 M1 PO (22:25)
[2024-07-30] MEDS ORDERED: IMODIUM A-1 MG/7.51 PO (22:28)
[2024-07-30] MEDS ORDERED: Magnesium Hydroxide 30 ML UDC PO PRN (22:40)
[2024-07-30] MEDS ORDERED: ACETAMINOPHEN 325 MG TAB PO PRN (22:40)
[2024-07-30] MEDS ORDERED: MG-AL HYDROXIDE/SIMETICONE 30 ML UDC PO PRN (22:40)
[2024-07-30] MEDS ORDERED: Menthol/Zinc Oxide 4 GM THIN T PRN (22:50)
[2024-07-31 07:31] LABS: BASO % 0.1 % (0.0-1.0); EOS # 0.3 10*3/uL (0.0-0.4); EOS % 2.7 % (1.0-4.0); HEMATOCRIT 33.2 % (37.0-47.0); LYMPH # 1.6 10*3/uL (1.3-4.4); LYMPH % 15.2 % (27.0-41.0); MEAN CELL VOLUME 94.9 fl (81.0-99.0); MEAN CORPUSCULAR HGB 31.4 pg (27.0-31.0); MEAN CORPUSCULAR HGB CONC 33.1 g/dl (33.0-37.0); MEAN PLATELET VOLUME 8.9 fl (9.6-12.3); MONO # 0.9 10*3/uL (0.1-1.0); MONO % 8.6 % (3.0-9.0); NEUT # 7.5 10*3/uL (2.3-7.9); NEUT % 73.1 % (47.0-73.0); PLATELET COUNT AUTOMATED 274 10*3/uL (130-400); RED CELL DISTRI WIDTH 14.1 % (0-14.5); WHITE BLOOD COUNT 10.3 10*3/uL (4.8-10.8)
[2024-07-31 07:48] VITALS: BP 130/58
[2024-07-31 08:59] LABS: ALKALINE PHOSPHATASE 82 U/L (46-116); BUN 10 mg/dl (9-23); CHLORIDE 100 mmol/L (98-107); CHOLESTEROL 89 mg/dL (<200); LDL CHOLESTEROL 33 mg/dL (9-159); POTASSIUM 3.7 mmol/L (3.4-5.1); SGPT/ALT 12 U/L (5-49); TOTAL PROTEIN 6.4 gm/dL (6.0-8.0); TRIGLYCERIDES 98 mg/dl (<150)
[2024-07-31] MEDS ORDERED: DIVALPROEX SODIUM 125 MG TAB PO SCH (09:00)
[2024-07-31] MEDS ORDERED: RIVASTIGMINE 13.3 MG/24 HR TDM T SCH (09:00)
[2024-07-31] MEDS ORDERED: Memantine Hydrochloride 5 MG TAB PO SCH ×2 (09:00→21:00)
[2024-07-31 09:06] LABS: VALPROIC ACID (DEPAKENE) < 3.0 ug/ml (50-100)
[2024-07-31 09:33] LABS: VITAMIN D, 25-HYDROXY 61.7 ng/mL (30-100)
[2024-07-31] MEDS ORDERED: Magnesium Hydroxide 30 ML UDC PO PRN (13:45)
[2024-07-31] MEDS ORDERED: Loperamide Hydrochloride 2 MG CAP PO PRN (13:45)
[2024-07-31] MEDS ORDERED: MINERAL OIL 133 ML BOT R PRN (13:50)
[2024-07-31 19:18] VITALS: BP 153/80
[2024-07-31] MEDS ORDERED: Mirtazapine 15 MG TAB PO SCH (21:00)
[2024-07-31] MEDS ORDERED: ATORVASTATIN CALCIUM 20 MG TAB PO SCH (21:00)
[2024-07-31] MEDS ORDERED: POTASSIUM CHLORIDE 20 MEQ TAB PO SCH (21:00)
[2024-07-31] MEDS ORDERED: Pantoprazole Sodium 40 MG PKT PO SCH (21:00)
[2024-07-31] MEDS ORDERED: CALCIUM (OSCAL) 500MG PO SCH (21:00)
[2024-08-01 08:00] VITALS: BP 150/80
[2024-08-01 08:40] LABS: POTASSIUM 3.8 mmol/L (3.4-5.1)
[2024-08-01] MEDS ORDERED: Losartan Potassium 50 MG TAB PO SCH (09:00)
[2024-08-01] MEDS ORDERED: Memantine Hydrochloride 10 MG TAB PO SCH (09:00)
[2024-08-01] MEDS ORDERED: predniSONE 5 MG TAB PO SCH (09:00)
[2024-08-01] MEDS ORDERED: MAGNESIUM OXIDE 400 MG TAB PO SCH (09:00)
[2024-08-01] MEDS ORDERED: LORATADINE 10 MG TAB PO SCH (09:00)
[2024-08-01] MEDS ORDERED: SODIUM CHLORIDE 1 GM TAB PO SCH (09:00)
[2024-08-01] MEDS ORDERED: FOLIC ACID 1 MG TAB PO SCH (09:00)
[2024-08-01] MEDS ORDERED: FUROSEMIDE 40 MG TAB PO SCH (09:00)
[2024-08-01] MEDS ORDERED: ATENOLOL 25 MG TAB PO SCH (09:00)
[2024-08-01 19:26] VITALS: BP 162/77
[2024-08-02 05:59] LABS: POTASSIUM 3.9 mmol/L (3.4-5.1)
[2024-08-02 08:00] VITALS: BP 160/82
[2024-08-02] MEDS ORDERED: FERROUS SULFATE 325 MG TAB PO SCH (09:00)
[2024-08-02] MEDS ORDERED: METOLAZONE 2.5 MG TAB PO SCH (09:00)
[2024-08-02] MEDS ORDERED: Z-BEC PO SCH (10:00)
[2024-08-02 20:00] VITALS: BP 164/100
[2024-08-02 20:30] VITALS: BP 180/100
[2024-08-02 21:09] VITALS: BP 148/90
[2024-08-03 08:33] VITALS: BP 138/78
[2024-08-03 20:00] VITALS: BP 182/72
[2024-08-03] MEDS ORDERED: hydrALAZINE hydrochloride 20 MG/ML VIAL IV ONE (20:00)
[2024-08-03] MEDS ORDERED: cloNIDine Hydrochloride 0.1 MG TAB PO ONE (20:15)
[2024-08-03] MEDS ORDERED: OLANZAPINE 2.5 MG TAB PO SCH (21:00)
[2024-08-04 09:03] VITALS: BP 164/72
[2024-08-04 20:00] VITALS: BP 148/62
[2024-08-05 08:00] VITALS: BP 187/83
[2024-08-05 19:26] VITALS: BP 149/82
[2024-08-06 07:06] VITALS: BP 151/55
[2024-08-06 20:00] VITALS: BP 128/61
[2024-08-07 08:29] VITALS: BP 153/51
[2024-08-07 20:00] VITALS: BP 159/78
[2024-08-08 08:00] VITALS: BP 144/58
[2024-08-08 19:08] VITALS: BP 140/65
[2024-08-09 07:44] LABS: POTASSIUM 5.1 mmol/L (3.4-5.1); TOTAL PROTEIN 7.4 gm/dL (6.0-8.0)
[2024-08-09] MEDS ORDERED: SODIUM CHLORIDE 0.9% 1,000 ML IV ONE (08:05)
[2024-08-09 08:31] VITALS: BP 141/91
[2024-08-09 20:00] VITALS: BP 154/65
[2024-08-10 07:30] LABS: TOTAL PROTEIN 6.7 gm/dL (6.0-8.0)
[2024-08-10 07:31] LABS: POTASSIUM 3.7 mmol/L (3.4-5.1)
[2024-08-10 07:44] VITALS: BP 148/55
[2024-08-10] MEDS ORDERED: ZYPREXA2.5 MG PO (09:37)
[2024-08-10] MEDS ORDERED: MIRTAZAPINE15 M2 PO (09:37)
[2024-08-10] MEDS ORDERED: RIVASTIGMINE1 EAC2 T (09:37)
[2024-08-10] MEDS ORDERED: MEMANTINE HCL10 MG PO (09:37)
[2024-08-10] MEDS ORDERED: DIALYVITE WITH1 EACH PO (09:37)
[2024-08-10] MEDS ORDERED: SODIUM CHLORIDE 0.9% 1,000 ML IV ONE (11:00)
== END 2024-08-10 14:43 | DRG 885 ==
LOC: 3N 16:58
PROVIDERS: Internal Medicine; Nurse Practitioner Women's Health; ADMIT Psychiatry & Neurology Psychiatry; ATTEND Psychiatry & Neurology Psychiatry
PROC: GZHZZZZ Group Psychotherapy (ICD-10-PCS; principal; 2024-07-31)
PROC: GZ51ZZZ Individual Psychotherapy, Behavioral (ICD-10-PCS; 2024-07-31)
DX: F33.3 Major depressive disorder, recurrent, severe with psychotic symptoms (principal); F63.81 Intermittent explosive disorder; N39.0 Urinary tract infection, site not specified; E87.1 Hypo-osmolality and hyponatremia; F02.82 Dementia in other diseases classified elsewhere, unspecified severity, with psychotic disturbance; R45.851 Suicidal ideations; F33.9 Major depressive disorder, recurrent, unspecified; G30.9 Alzheimer's disease, unspecified; M62.81 Muscle weakness (generalized); K21.9 Gastro-esophageal reflux disease without esophagitis; E78.5 Hyperlipidemia, unspecified; R23.8 Other skin changes; D64.9 Anemia, unspecified; Z90.49 Acquired absence of other specified parts of digestive tract; Z90.710 Acquired absence of both cervix and uterus; Z88.0 Allergy status to penicillin; Z88.2 Allergy status to sulfonamides; Z88.1 Allergy status to other antibiotic agents; Z79.899 Other long term (current) drug therapy